=== PATIENT | female | born 1990 | race Two or more races ===

== ENCOUNTER 2020-01-21 06:08 | Day surgery (SDC) | payer OTHER ==
[2020-01-21] MEDS ORDERED: NEXIUM 24HR20 MG PO (08:55)
[2020-01-21] MEDS ORDERED: CARAFATE1 GM PO (08:55)
== END 2020-01-21 10:25 | disposition home or self-care (01) ==
LOC: AMB-ENDOS 06:08
PROVIDERS: ATTEND Surgery
DX: K29.50 Unspecified chronic gastritis without bleeding (principal); K44.9 Diaphragmatic hernia without obstruction or gangrene